=== PATIENT | female | born 2000 | race Caucasian/White ===

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

== ENCOUNTER 2019-01-18 14:28 | Emergency (ER) | payer OTHER ==
--- OUTSIDE RECORDS SUMMARY | 2019-01-18 14:37 | XMS REPORT | Continuity of Care Document ---
:2000 Author Organization [facility] Allergies and Intolerances Code Code System Allergy Type Reaction Severity Start End Date Status Substance Date 20300803 RXNorm Keflex Drug Unknown Active allergy (disorder) 9754560 RXNorm Latuda Drug Unknown Active allergy (disorder) 760200 RXNorm Peanut Drug Unknown Active allergy (disorder) Medications RxNorm Medication Dose Route Instructions Start Date End Date Status 2418 Cholecalciferol 1000units oral orally every day Active 631356 Hydroxyzine Pamoate 50 mg oral orally once Active 50 MG Oral Capsule 8629 Prazosin 2mg oral orally once Active 781899 quetiapine 200 MG 200 mg oral orally 2 times Active Oral Tablet per day 427218 Sertraline 50 MG 50 mg oral orally every day Active Oral Tablet Medications At Time Of Discharge RxNorm Medication Dose Route Instructions Start Date End Date Status 2418 Cholecalciferol 1000units oral orally every day Active 248532 Hydroxyzine Pamoate 50 mg oral orally once Active 50 MG Oral Capsule 8629 Prazosin 2mg oral orally once Active 061235 quetiapine 200 MG 200 mg oral orally 2 times Active Oral Tablet per day 314959 Sertraline 50 MG 50 mg oral orally every day Active Oral Tablet Problems Code Code System Problem Name Start Date End Date Status 36309926 SNOMED-CT Anxiety U Active DYSREGULATED MOOD DISRUPTIVE DISORDER U Active Procedures No data in the system Results Laboratory Results Order: GC-CHLAMYDIA AMPLIFIED ASSAY Specimen Source: Swab Body Site: Endocervix Legend: (G,H) = High, (GG,HH,CH,#H ) = Above High Threshold, (#,L) = Low, (##,CL,#L,LL) = Below Low Threshold, (C, CC,CA,#A,A) = Abnormal LOINC Test Result Flag Range Units Date 1C trach DNA XXX Ql PCR NEGATIVE NEGATIVE 01/07/2019 14:51 Interpretive Jessie: 1A negative result does not rule out Chlamydia trachomatis infection because results are dependent on adequate specimen collection, absence of inhibitors, and sufficient DNA to be detected. Methodology: Nucleic Acid Amplification (CJ) 77588-2 1N gonorrhoea DNA XXX Ql PCR NEGATIVE NEGATIVE 01/07/2019 14:51 Interpretive Jessie: 1A negative result does not rule out Neisseria gonorrhoeae infection because results are dependent on adequate specimen collection, absence of inhibitors, and sufficient DNA to be detected. Performing Lab Footnotes:[facility] - [id number] - [address] [place] [address] SU ROUSSEAU Order: URINALYSIS ROUTINE Specimen Source: Body Site: Legend: (G,H) = High, (GG,HH,CH,#H) = Above High Threshold, (#,L) = Low, (##,CL,#L,LL) = Below Low Threshold, (C,CC,CA,#A,A) = Abnormal LOINC Test Result Flag Range Units Date 5778-6 1Color Ur YELLOW 01/07/2019 14:51 85928-4 1Turbidity Ur Ql CLEAR CLEAR 01/07/2019 14:51 5811-5 1Sp Gr Ur Strip 1.015 1.000-1.030 01/07/2019 14:51 5803-2 1pH Ur Strip 6.0 5.0-8.0 01/07/2019 14:51 87182-8 1WBC # Ur Strip TRACE ! NEGATIVE 01/07/2019 14:51 5802-4 1Nitrite Ur Ql Strip NEGATIVE NEGATIVE 01/07/2019 14:51 5804-0 1Prot Ur Strip-mCnc NEGATIVE NEGATIVE mg/dL 01/07/2019 14:51 5792-7 1Glucose Ur Strip-mCnc NORMAL NORMAL mg/dL 01/07/2019 14:51 5797-6 1Ketones Ur Strip-mCnc NEGATIVE NEGATIVE mg/dL 01/07/2019 14:51 26237-2 1Urobilinogen Ur 1 ! NORMAL mg/dL 01/07/2019 14:51 Strip-mCnc 73048-9 1Bilirub Ur Strip-mCnc NEGATIVE NEGATIVE mg/dL 01/07/2019 14:51 5794-3 1Hgb Ur Ql Strip TRACE ! NEGATIVE 01/07/2019 14:51 Performing Lab Footnotes:[facility] - [id number] - [address] [place] [address] [place] Order: URINE MICROSCOPIC Specimen Source: Body Site: Legend: (G,H) = High, (GG,HH,CH,#H) = Above High Threshold, (#,L) = Low, (##,CL,#L,LL) = Below Low Threshold, (C,CC,CA,#A,A) = Abnormal LOINC Test Result Flag Range Units Date 1URINE MICROSCOPIC EXAM 5821-4 1WBC #/area UrnS HPF 10-25 ! 0-2 /HPF 01/07/2019 14:51 5808-1 1RBC # UrnS HPF 0-2 ! NONE SEEN /HPF 01/07/2019 14:51 Interpretive Jessie: 1The [employer] has defined Microscopic Hematuria as 3 or more RBC per high powered field from a single positive urinalysis with microscopy. 43351-0 1Bacteria UrnS Ql Micro FEW ! NONE SEEN /HPF 01/07/2019 14:51 5787-7 1Epi Cells #/area UrnS HPF FEW ! NONE SEEN /HPF 01/07/2019 14:51 8247-9 1Mucous Threads UrnS Ql Micro MODERATE ! NONE SEEN /HPF 2018 14:51 Performing Lab Footnotes:[facility] - [id number] - [address] [place] [address] SU BALESTATYANAOMMiracle Order: VAGINAL PANEL, PCR Specimen Source: Swab Body Site: Vagina Legend: (G,H) = High, (GG,HH,CH,#H) = Above High Threshold, (#,L) = Low, (##,CL, #L,LL) = Below Low Threshold, (C,CC,CA,#A,A) = Abnormal LOINC Test Result Flag Range Units Date 1BACTERIAL VAGINOSIS NEGATIVE NEGATIVE 01/07/2019 14:51 1CANDIDA SPECIES NEGATIVE NEGATIVE 01/07/2019 14:51 Interpretive Jessie: 1Candida species includes Joaquina albicans and/or Joaquina tropicalis and/or Joaquina parapsilosis and/or Joaquina dubliniensis. 1CANDIDA KRUSEI NEGATIVE NEGATIVE 01/07/2019 14:51 1CANDIDA GLABRATA NEGATIVE NEGATIVE 01/07/2019 14:51 1TRICHOMONAS POSITIVE ! NEGATIVE 01/07/2019 14:51 Interpretive Jessie: 1Methodology: Polymerase Chain Reaction (PCR) Performing Lab Footnotes:[facility] - [id number] - [address] [place] [address] SU BALESCIOMD1 Order: PREG HCG QUANT BLOOD Specimen Source: Body Site: Legend: (G,H) = High, (GG,HH,CH,#H) = Above High Threshold, (#,L) = Low, (##,CL,#L,LL) = Below Low Threshold, (C,CC,CA,#A,A) = Abnormal LOINC Test Result Flag Range Units Date 87639-1 1B-HCG SerPl-mCnc 255 H <=5 mIU/mL 01/07/2019 13:48 1Approx Gest Age Approx BHCG Range Non- <3 1-2 Weeks 50-500 2-3 Weeks 100-5,000 3-4 Weeks 500-10,000 4-5 Weeks 1,000-50,000 5-6 Weeks 10,000-100,000 6-8 Weeks 15,000- 200,000 2-3 Months 5,000-200,000 2nd Trimester 3,000-50,000 3rd Trimester 1,000-50,000 Performing Lab Footnotes:[facility] - [id number] [place] [address] SU [id number] Microbiology Results w Susceptibilities Order: CULTURE URINE Specimen Source: Urine Body Site: Urine specimen collection, clean catchCultural Observations:Growth not [id number] Lab Footnotes:[facility] - [id number] [place] [address] SU BALESCIOMD1 Blood Bank Results Order: TYPE AND SCREEN Specimen Source: Body Site: LOINC Code Test Result Date [id number] ABO/Rh Typing O Rh Positive 01/07/2019 13:48 Specimen Expiration Date [id number] 01/07/2019 13:48 118935 Antibody Screen Negative 01/07/2019 13:48 Specimen Expiration Date [id number] 01/07/2019 13:48 Social History Code Code System Social History Description Dates Observed Observation [id number] SNOMED CT Current Smoking Current some day Status smoker UNK AdministrativeGender Sex Assigned At Unknown Vital Signs No data in the system Goals Section No data in the system Health Concerns No data in the systemEncounter Diagnosis Date Code Code System Diagnosis Status N92.6 ICD10 IRREGULAR MENSTRUATION UNSPECIFIED Active Advance Directives PT STATES NO ADVANCE DIRECTIVES Directive Type Effective Date 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 Supporting Document Name Address Phone No Directive Type 01/04/2019 Not Specified Not Specified Not Specified None No specified 10:39:00 PM Encounters Encounter Diagnosis Location Date IRREGULAR MENSTRUATION UNSPECIFIED [facility] 01/07/2019 Family History Patient has no knowledge of family history Functional Status No data in the system Immunizations Vaccine Code Code System Vaccine Name Date Status UTD Completed Medical Equipment No data in the system Mental Status No data in the system Assessment and Plan Assessments No data in the systemPlan Of Treatment No data in the systemPending Tests No data in the system Hospital Discharge Instructions No data in the system Reason for Visit No data in the system
--- OUTSIDE RECORDS SUMMARY | 2019-01-18 14:37 | XMS REPORT | Continuity of Care Document ---
:1999 External Reference #:[id number] Author Name Adina Cervantes M.D. Address [address] [place] [address] Problems Active Problems Provider Date Arthralgia of the lower leg Frantz Heredia MD Onset: 11/01/2013 Social History Type Date Description Comments Sex Unknown Tobacco Use Start: Unknown Currently smokes 1-5 Cigarettes Daily ETOH Use Denies alcohol use Recreational Drug Use Denies Drug Use Tobacco Use Start: Unknown Light tobacco smoker (10 or fewer cigarettes/day) Smoking Status Reviewed: 01/07/19 Light tobacco smoker (10 or fewer cigarettes/day) Allergies, Adverse Reactions, Alerts Active Allergies Reaction Severity Comments Date Lurasidone Hives and Vomiting 01/07/2019 Keflex Hives and Vomiting 01/07/2019 Peanut Oil Throat Closing 01/07/2019 Medications Description No Active Medications Immunizations Description No Information Available Vital Signs Date Vital Result Comment 01/07/2019 2:01pm Weight 124.00 lb Weight Percentile 43rd Weight 56.246 kg BP Systolic 112 mmHg BP Diastolic 60 mmHg Last Menstrual Period [id number] ? 7 Parity 2 05/07/2014 10:16am BP Systolic 110 mmHg BP Diastolic 76 mmHg Heart Rate 88 /min Respiratory Rate 15 /min Results Test Acquired Date Facility Test Result H/L Range Note Laboratory test 01/07/2019 [facility] Lab Culture Urine <pending> finding [phone] Procedures Description No Information Available Medical Devices Description No Information Available Encounters Description No Information Available Assessments Date Code Description Provider 01/07/2019 N92.6 Irregular menstruation, unspecified Adina Cervantes M.D. 01/07/2019 R10.2 Pelvic and perineal pain Adina Cervantes M.D. Plan of Treatment 01/07/2019 - Adina Cervantes M.D.N92.6 Irregular menstruation, laikcnhfijfL29.2 Pelvic and perineal painNew Labs:HCG Quant, Ordered: 01/07/19Blood Type & Screen, Ordered: 01/07/19HCG Quant, Ordered: 01/07/19Comments:Secondary amenorrhea - HCG 67 to 255. Reviewed ectopic precautions. Discussed s/s for return. RTO - 3 days for repeat HCG and pelvic u/s.Bladder tenderness - Urine culture. Discussed s/s for return.Follow up:RTO - 3 days for repeat HCG and f/u appt. Functional Status Description No Information Available Mental Status Description No Information Available Referrals Description No Information Available
--- OUTSIDE RECORDS SUMMARY | 2019-01-18 14:37 | XMS REPORT | Continuity of Care Document ---
:1999 Author Organization [facility] Care Team Providers Name Role Phone SOPHIA MERCER Primary Care Physician Allergies and Intolerances Code Code System Allergy Type Reaction Severity Start End Date Status Substance Date 20300803 RXNorm Keflex Drug Unknown Active allergy (disorder) 5735256 RXNorm Latuda Drug Unknown Active allergy (disorder) 783033 RXNorm Peanut Drug Unknown Active allergy (disorder) Medications RxNorm Medication Dose Route Instructions Start Date End Date Status 2418 Cholecalciferol 1000units oral orally every day Active 994881 Hydroxyzine Pamoate 50 mg oral orally once Active 50 MG Oral Capsule 8629 Prazosin 2mg oral orally once Active 581980 quetiapine 200 MG 200 mg oral orally 2 times Active Oral Tablet per day 177046 Sertraline 50 MG 50 mg oral orally every day Active Oral Tablet Medications At Time Of Discharge RxNorm Medication Dose Route Instructions Start Date End Date Status 2418 Cholecalciferol 1000units oral orally every day Active 031738 Hydroxyzine Pamoate 50 mg oral orally once Active 50 MG Oral Capsule 8629 Prazosin 2mg oral orally once Active 336739 quetiapine 200 MG 200 mg oral orally 2 times Active Oral Tablet per day 058269 Sertraline 50 MG 50 mg oral orally every day Active Oral Tablet Problems Code Code System Problem Name Start Date End Date Status 22328523 SNOMED-CT Anxiety U Active DYSREGULATED MOOD DISRUPTIVE DISORDER U Active Procedures No data in the system Results Laboratory Results Order: URINALYSIS ROUTINE Specimen Source : Body Site: Legend: (G,H) = High, (GG,HH,CH,#H) = Above High Threshold, (#,L) = Low, (##,CL,#L,LL) = Below Low Threshold, (C,CC,CA,#A,A) = Abnormal LOINC Test Result Flag Range Units Date 5778-6 1Color Ur YELLOW 01/04/2019 23:32 28812-9 1Turbidity Ur Ql CLEAR CLEAR 01/04/2019 23:32 5811-5 1Sp Gr Ur Strip 1.020 1.000-1.030 01/04/2019 23:32 5803-2 1pH Ur Strip 6.0 5.0-8.0 01/04/2019 23:32 04739-6 1WBC # Ur Strip 2+ ! NEGATIVE 01/04/2019 23:32 5802-4 1Nitrite Ur Ql Strip NEGATIVE NEGATIVE 01/04/2019 23:32 5804-0 1Prot Ur Strip-mCnc NEGATIVE NEGATIVE mg/dL 01/04/2019 23:32 5792-7 1Glucose Ur Strip-mCnc NORMAL NORMAL mg/dL 01/04/2019 23:32 5797-6 1Ketones Ur Strip-mCnc NEGATIVE NEGATIVE mg/dL 01/04/2019 23:32 45989-9 1Urobilinogen Ur NORMAL NORMAL mg/dL 01/04/2019 23:32 Strip-mCnc 01672-8 1Bilirub Ur Strip-mCnc NEGATIVE NEGATIVE mg/dL 01/04/2019 23:32 5794-3 1Hgb Ur Ql Strip 1+ ! NEGATIVE 01/04/2019 23:32 Performing Lab Footnotes:[facility] - [id number] - [address] [place] [address] LUZ ELENA VELD1 Order: URINE MICROSCOPIC Specimen Source: Body Site: Legend: (G,H) = High, (GG,HH,CH,#H) = Above High Threshold, (#,L) = Low, (##,CL,#L,LL) = Below Low Threshold, (C,CC,CA,#A,A) = Abnormal LOINC Test Result Flag Range Units Date 1URINE MICROSCOPIC EXAM 5821-4 1WBC #/area UrnS HPF 25-50 ! 0-2 /HPF 01/04/2019 23:32 5808-1 1RBC # UrnS HPF 0-2 ! NONE SEEN /HPF 01/04/2019 23:32 Interpretive Jessie: 1The [place] has defined Microscopic Hematuria as 3 or more RBC per high powered field from a single positive urinalysis with microscopy. 09460-3 1Bacteria UrnS Ql Micro MODERATE ! NONE SEEN /HPF 01/04/2019 23: 32 5787-7 1Epi Cells #/area UrnS HPF FEW ! NONE SEEN /HPF 01/04/2019 23:32 Performing Lab Footnotes:[facility] - [id number] - [address] [place] [address] SU PLASENCIAOMD1 Order: AMYLASE Specimen Source: Body Site: Legend: (G,H) = High, (GG,HH ,CH,#H) = Above High Threshold, (#,L) = Low, (##,CL,#L,LL) = Below Low Threshold , (C,CC,CA,#A,A) = Abnormal LOINC Test Result Flag Range Units Date 1798-07 1Amylase Ur-cCnc 89 25-125 U/L 01/04/2019 23:15 Performing Lab Footnotes:[facility] - [id number] - [address] [place] [address] SU PLASENCIAOMD1 Order: CBC DIFF Specimen Source: Body Site: Legend: (G,H) = High, (GG, HH,CH,#H) = Above High Threshold, (#,L) = Low, (##,CL,#L,LL) = Below Low Threshold, (C,CC,CA,#A,A) = Abnormal LOINC Test Result Flag Range Units Date 6690-2 1WBC # Bld Auto 7.0 4.8-10.8 K/uL 01/04/2019 23:15 87698-6 1RBC # Bld 4.40 4.20-5.40 M/uL 01/04/2019 23:15 718-7 1Hgb Bld-mCnc 13.6 12.0-16.0 gm/dL 01/04/2019 23:15 4544-3 1Hct VFr Bld Auto 39.0 36.0-48.0 % 01/04/2019 23:15 787-2 1MCV RBC Auto 88.5 80.0-100.0 fL 01/04/2019 23:15 29797-8 1MCHC RBC-mCnc 34.9 30.0-36.5 % 01/04/2019 23:15 92906-0 1MCH RBC Qn 30.9 27.0-34.0 pg 01/04/2019 23:15 35586-7 1RDW RBC 12.3 11.0-15.0 % 01/04/2019 23:15 777-3 1Platelet # Bld Auto 253 130-450 K/uL 01/04/2019 23:15 06866-4 1PMV Bld Auto 7.3 6.0-12.0 fL 01/04/2019 23:15 751-8 1Neutrophils # Bld Auto 61 37-80 % 01/04/2019 23:15 81506-4 1Lymphocytes NFr Bld 28 10-50 % 01/04/2019 23:15 5905-5 1Monocytes NFr Bld Auto 6 0-12 % 01/04/2019 23:15 78406-7 1Eosinophil # Bld 5 <=8 % 01/04/2019 23:15 704-7 1Basophils # Bld Auto 1 <=3 % 01/04/2019 23:15 05781-8 1Neutrophils # Bld 4.3 1.8-8.6 K/uL 01/04/2019 23:15 731-0 1Lymphocytes # Bld Auto 2.0 0.5-5.0 K/uL 01/04/2019 23:15 742-7 1Monocytes # Bld Auto 0.4 0.0-1.3 K/uL 01/04/2019 23:15 50110-5 1Eosinophil # Bld 0.3 0.0-0.9 K/uL 01/04/2019 23:15 704-7 1Basophils # Bld Auto 0.0 0.0-0.3 K/ul 01/04/2019 23:15 Performing Lab Footnotes:[facility] - [id number] - [address] [place] [address] SU Amador LUIS ANGELOMD1 Order: COMPREHENSIVE PANEL Specimen Source: Body Site: Legend: (G,H) = High, (GG,HH,CH,#H) = Above High Threshold, (#,L) = Low, (##,CL,#L,LL) = Below Low Threshold, (C,CC,CA,#A,A) = Abnormal LOINC Test Result Flag Range Units Date 2951-2 1Sodium SerPl-sCnc 139 136-145 mmol/L 01/04/2019 23:15 2823-3 1Potassium SerPl-sCnc 3.7 3.5-5.2 mmol/L 01/04/2019 23:15 5-0 1Chloride SerPl-sCnc 105 100-108 mmol/L 01/04/2019 23:15 8-9 1CO2 SerPl-sCnc 23 21-32 mmol/L 01/04/2019 23:15 2345-7 1Glucose SerPl-mCnc 87 70-100 mg/dL 01/04/2019 23:15 3094-0 1BUN SerPl-mCnc 8 7-21 mg/dL 01/04/2019 23:15 2160-0 1Creat SerPl-mCnc 0.7 0.6-1.3 mg/dL 01/04/2019 23:15 Interpretive Jessie: 1Normal Kidney Function or Mild Disease - GFR >OR= 60 Chronic Kidney Disease - GFR 15-59 Renal Failure - GFR < 15 GFR not calculated on patients under 18 years of age. Calculated (estimated) GFR is based on the MDRD Study equation, which assumes a steady state for creatinine. Estimated GFR may not be appropriate for medication dosing. 56726-0 1Ca-I SerPl-mCnc 9.6 8.5-10.8 mg/dL 01/04/2019 23:15 41259-6 1GFR/BSA.pred SerPl-ArVRat >60 01/04/2019 23:15 81752-3 1Bilirub Bld-mCnc 0.4 0.0-1.2 mg/dL 01/04/2019 23:15 2885-2 1Prot SerPl-mCnc 7.6 6.4-8.2 gm/dL 01/04/2019 23:15 1751-7 1Albumin SerPl-mCnc 4.7 3.4-4.8 gm/dL 01/04/2019 23:15 6768-6 1ALP SerPl-cCnc 70 40-150 U/L 01/04/2019 23:15 1742-6 1ALT SerPl-cCnc 12 0-55 U/L 01/04/2019 23:15 1920-8 1AST SerPl-cCnc 16 5-37 U/L 01/04/2019 23:15 Performing Lab Footnotes:[facility] - [id number] - [address] [place] [address] SU ROUSSEAU Order: LIPASE Specimen Source: Body Site: Legend: (G,H) = High, (GG,HH, CH,#H) = Above High Threshold, (#,L) = Low, (##,CL,#L,LL) = Below Low Threshold , (C,CC,CA,#A,A) = Abnormal LOINC Test Result Flag Range Units Date 3040-3 1Lipase SerPl-cCnc 49 8-78 U/L 01/04/2019 23:15 Performing Lab Footnotes:[facility] - [id number] - [address] [place] [address] SU PLASENCIAOMMiracle Order: PREG HCG QUANT BLOOD Specimen Source: Body Site: Legend: (G,H) = High, (GG,HH,CH,#H) = Above High Threshold, (#,L) = Low, (##,CL,#L,LL) = Below Low Threshold, (C,CC,CA,#A,A) = Abnormal LOINC Test Result Flag Range Units Date 56620-6 1B-HCG SerPl-mCnc 67 H <=5 mIU/mL 01/04/2019 23:15 1Approx Gest Age Approx BHCG Range Non- <3 1-2 Weeks 50-500 2-3 Weeks 100-5,000 3-4 Weeks 500-10,000 4-5 Weeks 1,000-50,000 5-6 Weeks 10,000-100,000 6-8 Weeks 15,000- 200,000 2-3 Months 5,000-200,000 2nd Trimester 3,000-50,000 3rd Trimester 1,000-50,000 Performing Lab Footnotes:[facility] - [id number] - [address] [place] [address] SU PLASENCIAOMMiracle Order: PT/INR Specimen Source: Body Site: Legend: (G,H) = High, (GG,HH, CH,#H) = Above High Threshold, (#,L) = Low, (##,CL,#L,LL) = Below Low Threshold , (C,CC,CA,#A,A) = Abnormal LOINC Test Result Flag Range Units Date 5902-2 1PT Time PPP 12.3 9.4-12.4 sec 01/04/2019 23:15 6301-6 1INR PPP 1.1 01/04/2019 23:15 Interpretive Jessie: 1 INR INTERPERTATION 2.0-3.0 THERAPEUTIC MONITORING 2.5-3.5 HEART VALVE REPLACEMENT Performing Lab Footnotes:[facility] - [id number] [place] [address] SU ROUSSEAU Order: PTT Specimen Source: Body Site: Legend: (G,H) = High, (GG,HH,CH, #H) = Above High Threshold, (#,L) = Low, (##,CL,#L,LL) = Below Low Threshold, (C ,CC,CA,#A,A) = Abnormal LOINC Test Result Flag Range Units Date 3173-2 1aPTT Time Bld 34.7 25.6-36.4 sec 01/04/2019 23:15 Performing Lab Footnotes:[facility] - [id number] - [address] [place] [address] SU ROUSSEAU Microbiology Results w Susceptibilities Order: CULTURE URINE Specimen Source: Urine Body Site: Urine specimen collection, clean catchCultural Observations:Mixed growth consistent with vaginal kristi [id number] Lab Footnotes:[facility] - [id number] - [address] [place] [address] SU Amador [id number] Social History Code Code System Social History Description Dates Observed Observation 008923064144261 SNOMED CT Current Smoking Current some day Status smoker UNK AdministrativeGender Sex Assigned At Unknown Vital Signs Code Code System Vitals Value Date 8310-5 LOINC Body Temperature 98.2 [degF] 01/04/2019 8865-8 LOINC Pulse Rate 102 {beats}/min 01/04/2019 9279-1 LOINC Respiratory Rate 20 /min 01/04/2019 87293-6 LOINC O2% BldC Oximetry 100 % 01/04/2019 8480-6 LOINC BP Systolic 120 mm[Hg] 01/04/2019 8462-4 LOINC BP Diastolic 90 mm[Hg] 01/04/2019 8302-2 LOINC Height 66 [in_i] 01/04/2019 67855-5 LOINC Weight 56.7 kg 01/04/2019 3140-1 LOINC Body surface area Derived from formula 1.64 m2 01/04/2019 22505-6 LOINC BMI (Body Mass Index) 20.3 kg/m2 01/04/2019 Goals Section No data in the system Health Concerns No data in the systemEncounter Diagnosis Date Code Code System Diagnosis Status O26.891 ICD10 OTH SPEC PREG RELATED COND 1ST TRI Active Advance Directives PT STATES NO ADVANCE DIRECTIVES Directive Type Effective Date Supervisor Paper Testing Notes Supporting Document Name Address Phone No Directive Type 01/04/2019 Not Specified Not Specified Not Specified None No specified 10:39:00 PM Encounters Encounter Diagnosis Location Date OTH SPEC PREG RELATED COND 1ST TRI [facility] 01/04/2019 Family History Patient has no knowledge of family history Functional Status Code Functional Condition Code System Date Status Independent adls SNOMED CT 01/04/2019 Active Appears well nourished/hydrated SNOMED CT 01/04/2019 Active Immunizations Vaccine Code Code System Vaccine Name Date Status UTD Completed Medical Equipment No data in the system Mental Status Code Cognitive Condition Code System Date Status Moves all extremities SNOMED CT 01/04/2019 Active Mild distress SNOMED CT 01/04/2019 Active [address]381 Orientated SNOMED CT 01/04/2019 Active 987424531 Mentally alert SNOMED CT 01/04/2019 Active Assessment and Plan Assessments No data in the systemPlan Of Treatment No data in the systemPending Tests Test Start Date CT-ABD PELVIS WITH IV CONTRAST 01/04/2019 23:52 Hospital Discharge Instructions No data in the system Reason for Visit Reason for Visit Abdominal Pain
[2019-01-18 15:03] VITALS: BP 108/58
--- NOTE | 2019-01-18 15:06 | UC ---
Complaint Female HPI - HPI Summary HPI Summary: Patient is a 18yo female A5 presenting "6-9 weeks " for c/o vaginal bleeding and RLQ pain since this morning. Patient notes vomiting 3-4 times today. Also notes constipation x4 days. Patient states pain worse with ambulation. 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 States "this feels like my ectopic." Patient also adds she had an appt yesterday with her OBGYN for check up but was asymptomatic then. States her urine was positive for and negative for infection yesterday. - History Of Current Complaint Chief Complaint: UCAbdominalPain Stated Complaint: CONSTIPATION CRAMPING/BLEEDING W Hx Obtained From: Patient Hx Last Menstrual Period: "I JUST HAD A MISCARRIAGE" Onset/Duration: Sudden Onset, Lasting Hours Severity Currently: Severe Pain Intensity: 7 - Allergies/Home Medications Allergies/Adverse Reactions: Allergies Allergy/AdvReac Type Severity Reaction Status Date / Time cephalexin Allergy Hives Verified 09/10/18 21:25 lurasidone [From Latuda] Allergy Vomiting Verified 09/10/18 21:25 peanuts Allergy Hives Uncoded 09/10/18 21:25 Home Medications: Home Medications Pnv No.95/Ferrous Fum/Folic AC [ Vitamin/Iron 28-0.8 mg] 1 tab PO DAILY 01/18/19 [History Confirmed 01/18/19] Pyridoxine TAB* [Vitamin B6 TAB*] 50 mg PO DAILY 01/18/19 [History Confirmed ] PMH/Surg Hx/FS Hx/Imm Hx Other History Of: Negative For: Anticoagulant Therapy - Surgical History Surgical History: Yes Surgery Procedure, Year, and Place: EYE SURGERY cyst left eye, age 3 - Family History Known Family History: Positive: Other Negative: Hypertension - Social History Alcohol Use: None Substance Use Type: None Smoking Status (MU): Heavy Every Day Tobacco Smoker Amount Used/How Often: 1-2 cig a day since learning of Have You Smoked in the Last Year: No When Did the Patient Quit Smoking/Using Tobacco: 2 YRS - Immunization History Hx Tetanus, Diphtheria Vaccination: Yes Vaccination Up to Date: Yes Review of Systems All Other Systems Reviewed And Are Negative: Yes Constitutional: Positive: Negative Respiratory: Positive: Negative Cardiovascular: Positive: Negative Gastrointestinal: Positive: Abdominal Pain - RLQ sharp, Vomiting, Nausea, Other - constipation Genitourinary: Positive: Abnormal Bleeding Musculoskeletal: Positive: Negative Neurological: Positive: Negative Physical Exam Triage Information Reviewed: Yes Appearance: Ill-Appearing, Pain Distress Vital Signs: Initial Vital Signs Temp 98.4 F 01/18/19 14:35 Pulse 86 01/18/19 14:35 Resp 18 01/18/19 14:35 BP 106/58 01/18/19 14:35 Pulse Ox 100 01/18/19 14:35 Vital Signs Reviewed: Yes Eyes: Positive: Conjunctiva Clear ENT: Positive: Hearing grossly normal Neck: Positive: Supple Respiratory Exam: Normal Respiratory: Positive: Lungs clear, Normal breath sounds, No respiratory distress Cardiovascular Exam: Normal Cardiovascular: Positive: RRR Abdominal Exam: Normal Abdomen Description: Positive: Soft, Guarding. Negative: Nontender - RLQ tenderness, CVA Tenderness (R), CVA Tenderness (L) Neurological: Positive: Alert Psychological: Positive: Age Appropriate Behavior Complaint Female Dx - Course Course Of Treatment: There is concern for ectopic based on history and physical exam. Discussed this with patient and she agreed to be transferred via ambulance for further evaluation of symptoms. Patient VS stable upon departure. - Differential Dx/Diagnosis Differential Diagnosis/HQI/PQRI: Appendicitis, Ectopic, Ovarian Torsion, Tubo- ovarian Abscess, Ureteral Stone Provider Diagnosis: with abdominal pain of right lower quadrant, antepartum, Vaginal bleeding during Discharge ED - Sign-Out/Discharge Documenting (check all that apply): Patient Departure All imaging exams completed and their final reports reviewed: No Studies - Discharge Plan Condition: Stable Disposition: TRANS HIGHER LVL OF CARE FAC Referrals: No Primary Care Phys,NOPCP [Primary Care Provider] - - Billing Disposition and Condition Condition: STABLE Disposition: Trans Higher Lvl of Care Fac
== END 2019-01-18 15:04 | disposition short-term general hospital (02) ==
LOC: UCCORT 14:28
DX: O99.89 Other specified diseases and conditions complicating pregnancy, childbirth and the puerperium (principal); R10.31 Right lower quadrant pain; O46.91 Antepartum hemorrhage, unspecified, first trimester; O99.331 Smoking (tobacco) complicating pregnancy, first trimester; O21.9 Vomiting of pregnancy, unspecified; R11.2 Nausea with vomiting, unspecified; K59.00 Constipation, unspecified; Z3A.09 9 weeks gestation of pregnancy; F17.210 Nicotine dependence, cigarettes, uncomplicated; Z88.1 Allergy status to other antibiotic agents; Z88.8 Allergy status to other drugs, medicaments and biological substances; Z91.010 Allergy to peanuts
CPT/HCPCS: 99213; G0463

== ENCOUNTER 2019-02-05 18:19 | Emergency (ER) | payer OTHER ==
[2019-02-05] MEDS ORDERED: Ondansetron ODT TAB* 4 MG SL ONE (18:42)
[2019-02-05] MEDS ORDERED: NS 0.9% 1000 ML** 1,000 ML IV ONE (18:43)
--- NOTE | 2019-02-05 19:37 | UC ---
Nausea/Vomiting/Diarrhea HPI - HPI Summary HPI Summary: Patient is a 18yo female presenting at 9 weeks with twins for c/o abdominal pain, n/v, SOB, and dizziness today. States she walked here from work. Patient states n/v normal for her in the morning but today she "cant even hold water down" and states she "needs IV fluids." Patient states abdominal pain is "constant cramping feeling like contractions but not like contractions from the ribs down to her vagina." Denies vaginal bleeding and discharge. Denies urinary symptoms. Denies fever and chills. Denies URI symptoms. Patient was seen here by myself on 01/18 for RLQ pain and vaginal bleeding and was sent to [facility] via ambulance. Patient states that they told her there that she "just had a yeast infection and was with twins." - History of Current Complaint Chief Complaint: UCGeneralIllness Stated Complaint: DIZZY,LIGHTHEADED,NAUSEA Hx Obtained From: Patient Hx Last Menstrual Period: "I JUST HAD A MISCARRIAGE" Onset/Duration: Gradual Onset, Lasting Hours Severity Currently: Severe Pain Intensity: 8 Pain Scale Used: 0-10 Numeric - Allergies/Home Medications Allergies/Adverse Reactions: Allergies Allergy/AdvReac Type Severity Reaction Status Date / Time cephalexin Allergy Hives Verified 02/05/19 18:27 lurasidone [From Latuda] Allergy Vomiting Verified 02/05/19 18:27 peanuts Allergy Hives Uncoded 02/05/19 18:27 PMH/Surg Hx/FS Hx/Imm Hx Other History Of: Negative For: Anticoagulant Therapy - Surgical History Surgical History: Yes Surgery Procedure, Year, and Place: EYE SURGERY cyst left eye, age 3 - Family History Known Family History: Positive: Other Negative: Hypertension - Social History Alcohol Use: None Substance Use Type: None Smoking Status (MU): Heavy Every Day Tobacco Smoker Amount Used/How Often: 1-2 cig a day since learning of Have You Smoked in the Last Year: No When Did the Patient Quit Smoking/Using Tobacco: 2 YRS - Immunization History Hx Tetanus, Diphtheria Vaccination: Yes Vaccination Up to Date: Yes Review of Systems All Other Systems Reviewed And Are Negative: Yes Constitutional: Positive: Negative. Negative: Fever Respiratory: Positive: Shortness Of Breath. Negative: Cough Cardiovascular: Positive: Negative. Negative: Palpitations, Chest Pain Gastrointestinal: Positive: Abdominal Pain - "all over abdominal pain", Vomiting , Nausea. Negative: Diarrhea Genitourinary: Positive: Negative. Negative: Dysuria, Vaginal/Penile Discharge , Abnormal Bleeding Motor: Positive: Negative Neurovascular: Positive: Negative Musculoskeletal: Positive: Negative Neurological: Positive: Negative Physical Exam Triage Information Reviewed: Yes Appearance: No Pain Distress, Well-Nourished, Ill-Appearing Vital Signs: Initial Vital Signs Temp 97.6 F 02/05/19 18:22 Pulse 89 02/05/19 18:22 Resp 24 02/05/19 18:22 BP 98/66 02/05/19 18:22 Pulse Ox 100 02/05/19 18:22 Lab Results 02/05/19 02/05/19 Range/Units 19:19 19:21 POC Urine Color Dark yellow POC Urine Clarity Cloudy POC Urine pH 5.5 (5-9) POC Ur Specif [place] >= 1.030 (1.010-1.030) POC Urine Protein Trace (Negative) POC Ur Glucose (UA) Negative (Negative) POC Urine Ketones Negative (Negative) POC Urine Blood 1+ A (Negative) POC Urine Nitrite Positive (Negative) POC Urine Bilirubin Negative (Negative) POC Urine Urobilinogen 0.2 (Negative) POC U Leukocyte Esteras Negative (Negative) POC Ur Test Positive A (Negative) Vital Signs Reviewed: Yes Eyes: Positive: Conjunctiva Clear ENT: Positive: Hearing grossly normal Neck: Positive: Supple Respiratory Exam: Normal Respiratory: Positive: Lungs clear, Normal breath sounds, No respiratory distress, No accessory muscle use. Negative: Crackles, Rhonchi, Stridor, Wheezing Cardiovascular Exam: Normal Cardiovascular: Positive: RRR Abdomen Description: Positive: Soft. Negative: Nontender - diffuse tenderness to palpation of epigastric and suprapubic regions, CVA Tenderness (R), CVA Tenderness (L), Distended, Guarding, McBurney's Point Tenderness Bowel Sounds: Positive: Present Neurological: Positive: Alert Psychological: Positive: Age Appropriate Behavior Skin Exam: Normal - no erythema or ecchymosis Naus/Vom/Diarrhea Course/Dx - Course Course Of Treatment: Patient with n/v and abdominal pain. Vomited once upon arrival after drinking sips of water. She received zofran for nausea and 1L bolus of NS. Patient continued to vomit twice more and stated she "feels worse than when she came and pain is increasing." I recommended transfer via ambulance to [facility] for further management of hyperemesis and abdominal pain. Patient voiced understanding of the situation and agreed to go only if she could be transferred to [facility]. delivery route driver arrived and she changed her mind, asking to go to [facility]. Patient VS normal throughout visit. Patient stable upon departure. Discussed this patient with Dr. Parks who agreed with treatment and plan. - Differential Dx/Diagnosis Provider Diagnosis: Diffuse abdominal pain, Nausea and vomiting during Condition At Discharge: Stable Discharge ED - Sign-Out/Discharge Documenting (check all that apply): Patient Departure All imaging exams completed and their final reports reviewed: No Studies - Discharge Plan Condition: Stable Disposition: TRANS HIGHER LVL OF CARE FAC - Billing Disposition and Condition Condition: STABLE Disposition: Trans Higher Lvl of Care Fac
[2019-02-05 20:28] VITALS: BP 101/63
--- NOTE | 2019-02-08 11:02 | UC ---
- Progress Note Progress Note: Urine culture is positive for E. coli, but we do not have a sensitivity as of yet. I suggest that she start nitrofurantoin, but it is possible that a different antibiotic might be advised based on the culture report. At the time of her visit here, she had no fever or urinary symptoms, although she did have abdominal pain, which was not new and was not suggestive of pyelo. Nitrofurantoin chosen as tx of asymptomatic bacteriuria. Check to see if she is still having vomiting and abdominal pain. Course/Dx - Diagnoses Provider Diagnoses: Diffuse abdominal pain, Nausea and vomiting during Discharge ED - Sign-Out/Discharge Documenting (check all that apply): Post-Discharge Follow Up All imaging exams completed and their final reports reviewed: No Studies - Discharge Plan Condition: Stable Disposition: TRANS HIGHER LVL OF CARE FAC Referrals: No Primary Care Phys,NOPCP [Primary Care Provider] - - Billing Disposition and Condition Condition: STABLE Disposition: Trans Higher Lvl of Care Fac
== END 2019-02-05 20:15 | disposition short-term general hospital (02) ==
LOC: UCCORT 18:19
DX: O21.9 Vomiting of pregnancy, unspecified (principal); O99.89 Other specified diseases and conditions complicating pregnancy, childbirth and the puerperium; O99.331 Smoking (tobacco) complicating pregnancy, first trimester; R10.84 Generalized abdominal pain; R42 Dizziness and giddiness; F17.210 Nicotine dependence, cigarettes, uncomplicated; Z88.1 Allergy status to other antibiotic agents; Z91.010 Allergy to peanuts; Z3A.09 9 weeks gestation of pregnancy; Z88.8 Allergy status to other drugs, medicaments and biological substances
CPT/HCPCS: 81003; 84702; 87077; 87086; 87186; 96360; 99213; A9270-GY; G0463

== ENCOUNTER 2019-02-05 21:04 | Emergency (ER) | payer OTHER ==
[2019-02-05] MEDS ORDERED: NS 0.9% 1000 ML** 2,000 ML IV ONE (21:16)
[2019-02-05] MEDS ORDERED: Metoclopramide IV* 5 MG/ML 2 ML VIAL IV SLOW PU ONE (21:17)
--- NOTE | 2019-02-05 21:35 | ED ---
- HPI Summary HPI Summary: 18 year old female at 9 weeks admits to nausea vomiting abdominal pain for the past couple days. States that she has had this with other previous pregnancies required a PICC line for IV fluids. She sees an OB in [place]. She states that she is having twins. She is having increasing pain today. She was seen in urgent care and given Zofran and fluids but nausea is not improving. She states that she has been having vaginal discharge. No vaginal bleeding. She states that boyfriend was dx with trich. She denies any urinary symptoms. - History of Current Complaint Chief Complaint: EDNauseaVomitDiarrh Stated Complaint: 9 WEEKS - VOMITING PER EMS Time Seen by Provider: 02/05/19 21:10 Pain Intensity: 6 - Assessment Hx Now: Yes Hx Last Menstrual Period: 09/27/16 - Allergies/Home Medications Allergies/Adverse Reactions: Allergies Allergy/AdvReac Type Severity Reaction Status Date / Time cephalexin Allergy Hives Verified 02/05/19 21:10 lurasidone [From Latuda] Allergy Vomiting Verified 02/05/19 21:10 peanuts Allergy Hives Uncoded 02/05/19 21:10 PMH/Surg Hx/FS Hx/Imm Hx Endocrine/Hematology History: Reports: Hx Anemia Denies: Hx Anticoagulant Therapy, Hx Blood Disorders, Hx Blood Transfusions, Hx Bone Marrow Disease, Hx Diabetes, Hx Systemic Lupus Erythematosus, Hx Sickle Cell Disease, Hx Thyroid Disease, Hx Unexplained Bleeding, Other Endocrine/ Hematological Disorders Cardiovascular History: Denies: Hx Aneurysm, Hx Angina, Hx Angioplasty, Hx Atrial Fibrillation, Hx Auto Implanted Cardiovert Defib, Hx Cardiac Arrest, Hx Cardiomegaly, Hx Congenital Heart Disease, Hx Congestive Heart Failure, Hx Coronary Artery Disease, Hx Deep Vein Thrombosis, Hx Embolism, Hx Hypercholesterolemia, Hx Hypotension, Hx Hypertension, Hx Myocardial Infarction, Hx Pacemaker/ICD, Hx Peripheral Vascular Disease, Hx Rheumatic Fever, Hx Syncope, Hx Valvular Heart Disease, Other Cardiovascular Problems/Disorders Respiratory History: Denies: Hx Asthma, Hx Bronchopulmonary Dysplasia, Hx Chronic Bronchitis, Hx Chronic Obstructive Pulmonary Disease (COPD), Hx Cystic Fibrosis, Hx Lung Cancer , Hx Pleural Effusion, Hx Pneumonia, Hx Pulmonary Edema, Hx Pulmonary Embolism, Hx Seasonal Allergies, Hx Sleep Apnea, Other Respiratory Problems/Disorders GI History: Denies: Hx Cirrhosis, Hx Crohn's Disease, Hx Diverticulosis, Hx Gall Bladder Disease, Hx Gastroesophageal Reflux Disease, Hx Gastrointestinal Bleed, Hx Hiatal Hernia, Hx Irritable Bowel, Hx Jaundice, Hx Obstructive Bowel, Hx Ileostomy, Hx Pyloric Stenosis, Hx Ulcer, Hx Urosepsis, Other GI Disorders History: Denies: Hx Acute Renal Failure, Hx Benign Prostatic Hyperplasia, Hx Chronic Renal Failure, Hx Dialysis, Hx Kidney Infection, Hx Kidney Stones, Hx Renal Disease, Other Problems/Disorders Musculoskeletal History: Denies: Hx Arthritis, Hx Rheumatoid Arthritis, Hx Back Problems, Hx Bursitis , Hx Congenital Bone Abnormalities, Hx Fibromyalgia, Hx Gout, Hx Orthopedic Injury, Hx Osteoporosis, Hx Scoliosis, Hx Tendonitis, Other Musculoskeletal History Sensory History: Reports: Hx Contacts or Glasses - glasses Denies: Hx Cataracts, Hx Eye Injury, Hx Eye Prosthesis, Hx Glaucoma, Hx Legally Blind, Hx Macular Degeneration, Hx Vision Problem, Hx Deafness, Hx Hearing Aid, Hx Hearing Problem, Other Sensory Impairments Opthamlomology History: Reports: Hx Contacts or Glasses - glasses Denies: Hx Cataracts, Hx Eye Injury, Hx Eye Prosthesis, Hx Glaucoma, Hx Legally Blind, Hx Macular Degeneration, Hx Vision Problem, Other Sensory Impairments Neurological History: 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 Denies: Hx CVA, Hx Dementia, Hx Developmental Delay, Hx Headaches, Hx Migraine, Hx Nerve Disease, Hx Peripheral Neuropathy, Hx Spinal Cord Injury, Hx Transient Ischemic Attacks (TIA), Other Neuro Impairments/Disorders Psychiatric History: Reports: Hx Anxiety - no meds, Hx Depression - no meds Denies: Hx Attention Deficit Hyperactivity Disorder, Hx Autism, Hx Eating Disorder, Hx Oppositional [place] Disorder, Hx Panic Disorder, Hx Post Traumatic Stress Disorder, Hx Inpatient Treatment, Hx Community Mental Health Tx , Hx Schizophrenia, Hx Bipolar Disorder, Hx Suicide Attempt, Hx of Violent Episodes Against Others, Hx Substance Abuse, Other Psychiatric Issues/Disorders - Cancer History Hx Hematologic Symptoms: No Hx Chemotherapy: No Hx Radiation Therapy: No Hx Palliative Cancer Treatment: No - Surgical History Surgery Procedure, Year, and Place: EYE SURGERY cyst left eye, age 3 Hx Anesthesia Reactions: No Infectious Disease History: No Infectious Disease History: Denies: Hx Hepatitis, Hx Human Immunodeficiency Virus (HIV), Traveled Outside the [place] in Last 30 Days - Family History Known Family History: Positive: Other Negative: Hypertension - Social History Alcohol Use: None Substance Use Type: Reports: None Smoking Status (MU): Light Every Day Tobacco Smoker Amount Used/How Often: 1-2 cig a day since learning of Have You Smoked in the Last Year: No Review of Systems Negative: Fever Negative: Chest Pain Negative: Shortness Of Breath Positive: Abdominal Pain, Vomiting, Nausea All Other Systems Reviewed And Are Negative: Yes Physical Exam - Physical Exam Triage Information Reviewed: Yes Vital Signs Reviewed: Yes Appearance: Positive: Well-Appearing Skin: Positive: Warm, Dry Head/Face: Positive: Normal Head/Face Inspection Eyes: Positive: Normal, Conjunctiva Clear ENT: Positive: Pharynx normal Respiratory/Lung Sounds: Positive: Clear to Auscultation, Breath Sounds Present Cardiovascular: Positive: Normal, RRR Abdomen Description: Positive: Soft, Other: - tenderness lower abd Bowel Sounds: Positive: Present Musculoskeletal: Positive: Normal Neurological: Positive: Normal Psychiatric: Positive: Normal Procedures - Sedation Patient Received Moderate/Deep Sedation with Procedure: No Diagnostics - Vital Signs Vital Signs Temp Pulse Resp BP Pulse Ox 02/05/19 21:06 97.6 F 77 18 104/67 99 - Laboratory Result Diagrams: 02/05/19 21:43 02/05/19 21:43 Lab Statement: Any lab studies that have been ordered have been reviewed, and results considered in the medical decision making process. - Ultrasound No standard instances Ultrasound Interpretation Completed By: Radiologist Summary of Ultrasound Findings: IMPRESSION: 1. Single live intrauterine fetus with estimated age of 8 weeks 2 days. The EDC is 09/15/2019. 2. Hemorrhagic left ovarian cyst measuring 2.3 x 2.7 x 1.3 cm and may reflect a corpus luteum cyst. Re-Evaluation - Re-Evaluation First Eval Re-Evaluation Time: 23:49 Change: Improved Comment: tolerate liquid and crackers in room Course/Dx - Course Course Of Treatment: 18 year old female at 9 weeks admits to nausea vomiting abdominal pain for the past couple days. States that she has had this with other previous pregnancies required a PICC line for IV fluids. She sees an OB in [place]. She states that she is having twins. She is having increasing pain today. She was seen in urgent care and given Zofran and fluids but nausea is not improving. She states that she has been having vaginal discharge. No vaginal bleeding. She states that boyfriend was dx with trich. She denies any urinary symptoms. On exam tenderness lower abdomen. Appears comfortable. wbc normal. mg low at 1.7. gave reglan and feeling bettter. will wait on vaginal cultures to see if any treatment needed. u/s shows iup. will have follow up with ob. gave reglan as needed. patient understand and agrees with plan. - Differential Diagnosis/HQI/PQRI: Intrauterine , Ovarian Cyst, STI/STD - Diagnoses Provider Diagnoses: Nausea and vomiting during Discharge ED - Sign-Out/Discharge Documenting (check all that apply): Patient Departure - Discharge Plan Condition: Good Disposition: HOME Prescriptions: Metoclopramide TAB* [Reglan TAB*] 10 mg PO Q6H PRN #20 tab PRN Reason: Nausea Patient Education Materials: Nausea and Vomiting in (ED) Referrals: No Primary Care Phys,NOPCP [Primary Care Provider] - Additional Instructions: Take reglan every 6 hours for vomiting Eat a small snack throughout the day, drink liquids as tolerated Follow up with obgyn Return to ED if develop any new or worsening symptoms - Billing Disposition and Condition Condition: GOOD Disposition: Home
[2019-02-05 21:52] LABS: ABS Eosinophils 0.1 10^3/ul (0-0.6); ABS Lymphocytes 1.7 10^3/ul (1.0-4.8); ABS Monocytes 0.4 10^3/ul (0-0.8); ABS Neutrophils 4.1 10^3/ul (1.5-7.7); Eosinophil % 1.1 %; Hematocrit 32 % (35-47); Hemoglobin 11.1 g/dL (12.0-16.0); Lymphocyte % 27.1 %; Mean Corpuscular HGB Conc 34 g/dL (31-36); Mean Corpuscular Hemoglobin 30 pg (27-31); Mean Corpuscular Volume 88 fL (80-97); Mean Platelet Volume 7.6 fL (7.4-10.4); Platelet Count 187 10^3/uL (150-450); Red Blood Count 3.67 10^6 /uL (3.70-4.87); Red Cell Distribution Width 15 % (10-15); White Blood Count 6.3 10^3/uL (3.5-10.8)
[2019-02-05 22:14] LABS: Albumin 3.8 g/dL (3.2-5.2); Albumin/Globulin Ratio 1.6 (1-3); BUN/Creatinine Ratio 22.6 (8-20); C Reactive Protein 1.89 mg/L (<8.01); Calcium 8.5 mg/dL (8.6-10.3); EGFR African American 179.8 (>60); EGFR Non-African American 148.6 (>60); Globulin 2.4 g/dL (2-4); Magnesium 1.7 mg/dL (1.9-2.7); Total Bilirubin 0.3 mg/dL (0.2-1.0); Total Protein 6.2 g/dL (6.4-8.9)
[2019-02-05] MEDS ORDERED: Acetaminophen TAB* 325 MG PO ONE (23:02)
[2019-02-05] MEDS ORDERED: Magnesium Chloride EC TAB* 64 MG PO ONE (23:02)
[2019-02-05 23:27] LABS: Urine Appearance Cloudy; Urine Bilirubin Negative (Negative); Urine Blood Negative (Negative); Urine Color Yellow; Urine Glucose Negative (Negative); Urine Ketones Negative (Negative); Urine Nitrite Negative (Negative); Urine Protein Negative (Negative); Urine Specific Gravity 1.021 (1.010-1.030); Urine Urobilinogen Negative (Negative)
[2019-02-06 00:19] VITALS: BP 109/67
[2019-02-06 13:52] LABS: Chlamydia trachomatis NAA Negative (Negative); Neisseria gonorrhoeae (GC) NAA Negative (Negative)
== END 2019-02-06 00:17 | disposition home or self-care (01) ==
LOC: ED 21:04
DX: O21.9 Vomiting of pregnancy, unspecified (principal); Z3A.09 9 weeks gestation of pregnancy; F17.210 Nicotine dependence, cigarettes, uncomplicated; F41.9 Anxiety disorder, unspecified; N83.202 Unspecified ovarian cyst, left side
CPT/HCPCS: 36415; 76817; 80053; 81003; 83605; 83690; 83735; 85025; 86140; 87480; 87491; 87510; 87591; 96361; 96374; 99283; A9270-GY; J2765